=== PATIENT | male | born 2000 | race Hispanic/Latino ===

== ENCOUNTER 2020-03-06 19:08 | Emergency (ER) | payer SELFPAY ==
[2020-03-06 20:41] LABS: Bilirubin Negative (Negative); Blood, Urine Negative (Negative); Clarity Clear (Clear); Glucose, Urine (Dipstick) Normal (Negative); Ketone, Urine Negative (Negative); Leukocyte Negative Leu/uL (Negative); Nitrite Negative (Negative); Protein, Urine (Dipstick) 20 mg/dL (Neg-Trace); Specific Gravity, Urine 1.024 (1.002-1.036); Urobilinogen Normal mg/dL (Less than 2)
[2020-03-06 20:46] LABS: #Basophils 0.1 thou/uL (0.0-0.2); #Eosinphils 0.1 thou/uL (0.0-0.7); #Lymphocytes 3.1 thou/uL (1.20-3.40); #Neutrophils 12.1 thou/uL (1.40-6.50); %Basophils 0.7 % (0.0-1.0); %Eosinophils 0.8 % (0.0-10.0); %Monocytes 6.1 % (0.0-4.0); %Neutrophils 73.5 % (31.0-61.0); Hemoglobin 13.9 g/dL (14.0-18.0); Mean Corpuscular HGB CONC 33.8 g/dL (32.0-36.0); Mean Corpuscular Volume 88.7 fL (78.0-98.0); Mean Platelet Volume 7.4 fL (7.4-10.4); Platelet Count 354 thou/uL (130-400); RBC Distribution Width 12.4 % (11.5-14.5); Red Blood Cell (RBC) Count 4.62 mill/uL (4.00-5.20); White Blood Cell (WBC) Count 16.4 thou/uL (4.8-10.8)
[2020-03-06 20:52] LABS: Amphetamine Not Detected (NotDetected); Barbiturates Screen Not Detected (NotDetected); Benzodiazepine Screen Not Detected (NotDetected); Cocaine Metabolite Screen Not Detected (NotDetected); Medtox Control Line Valid? VALID (VALID); Medtox Reader # READER 4; Methadone Not Detected (NotDetected); Methamphetamine Not Detected (NotDetected); Opiate Screen Not Detected (NotDetected); Oxycodone Screen Not Detected (NotDetected); Phencyclidine (PCP) Not Detected (NotDetected); THC/Cannabinoid Screen Not Detected (NotDetected); Tricyclic Screen Not Detected (NotDetected)
[2020-03-06] MEDS ORDERED: Boostrix 0.5 ML (Tdap) VIAL ONE ×2 (21:02→22:08)
[2020-03-06 21:06] LABS: Acetaminophen Less than 6.0 mcg/mL (10.0-30.0); Alcohol Less than 10 mg/dL (Less than 10); Salicylate Less than 8.0 mg/dL (15.0-30.0)
[2020-03-06 21:08] LABS: ALT (SGPT) 106 U/L (8-55); AST (SGOT) 46 U/L (5-34); Albumin 4.1 g/dL (3.5-5.0); Alkaline Phosphatase 71 U/L (50-130); Anion Gap 13 mmol/L (10-20); BUN (Urea Nitrogen) 15 mg/dL (8.9-20.6); Bilirubin, Total Less than 0.2 mg/dL (0.2-1.2); CK (CPK) 81 U/L (30-200); Calc. Creatinine Clearance 0 mL/min (70-130); Calcium 8.8 mg/dL (7.8-10.44); Carbon Dioxide 27 mmol/L (22-29); Chloride 103 mmol/L (98-107); Globulin 2.7 g/dL (2.4-3.5); Glucose 123 mg/dL (70-105); Potassium 3.9 mmol/L (3.5-5.1); Protein, Total 6.8 g/dL (6.0-8.3); Sodium 139 mmol/L (136-145)
[2020-03-07] MEDS ORDERED: Nicotine 14 MG PATCH TOP SCH (16:15)
[2020-03-07] MEDS ORDERED: Nicotine 14 MG PATCH ONE (16:58)
[2020-03-08] MEDS ORDERED: hydrOXYzine Pamoate 25 mg Capsule ONE (19:40)
[2020-03-08] MEDS ORDERED: Nicotine 14 MG PATCH ONE (19:40)
[2020-03-09] MEDS ORDERED: Nicotine 14 MG PATCH TOP SCH (18:00)
[2020-03-10] MEDS ORDERED: Nicotine 14 MG PATCH ONE (18:37)
[2020-03-10] MEDS ORDERED: risperiDONE 1 MG TAB ONE (20:44)
[2020-03-10] MEDS ORDERED: hydrOXYzine Pamoate 25 mg Capsule ONE (20:46)
[2020-03-10] MEDS ORDERED: traZODone HCl 50 MG TAB ONE (22:57)
--- NOTE | 2020-03-18 15:54 | EKG ---
Test Reason : Blood Pressure : / mmHG Vent. Rate : 079 BPM Atrial Rate : 079 BPM P-R Int : 144 ms QRS Dur : 084 ms QT Int : 350 ms P-R-T Axes : 046 044 035 degrees QTc Int : 401 ms Normal sinus rhythm Normal ECG Confirmed by SYLVIA ADAM ([id number]), technical editor MANNIE CERDA ([id number]) on 03/18/2020 3:53:37 PM Referred By: Confirmed By:SYLVIA ADAM
== END 2020-03-11 13:53 ==
LOC: ERS 19:08
DX: S50.812A Abrasion of left forearm, initial encounter (principal); Z79.899 Other long term (current) drug therapy; X58.XXXA Exposure to other specified factors, initial encounter
CPT/HCPCS: 36415; 80053; 80306; 80307; 81003; 82550; 84443; 85025; 90715; 93005; Q0177